=== PATIENT | male | born 1940 | race Caucasian/White ===

== ENCOUNTER 2016-11-11 10:13 | Emergency (ER) ==
[2016-11-11 10:19] VITALS: BP 139/54
--- NOTE | 2016-11-11 10:49 | PROVIDER DOCUMENTATION ---
HPI-Musculoskeletal Pain/Inj - GENERAL Chief Complaint: Neck Pain Stated Complaint: NECK PAIN Time Seen by Provider: 11/11/16 10:23 Source: patient - HX OF PRESENT ILLNESS-MUSKULOSKELTAL Nature of Presenting Problem: 76 y/o WM c/o R sided neck pain x 3 weeks, worse in last day. States he is having trouble lifting RUE past his shoulder. Denies any VAN, numbness/tingling , shoulder pain, back pain. Review of Systems - Adult - REVIEW OF SYSTEMS - ADULT Constitutional: reports: no symptoms reported. denies: chills, fever Eyes: reports: no symptoms reported. denies: blurred vision, double vision Ears, Nose, Mouth & Throat: reports: no symptoms reported. denies: ear pain, nose pain Cardiovascular: reports: no symptoms reported. denies: chest pain, palpitations Respiratory: reports: no symptoms reported. denies: dyspnea on exertion, shortness of breath Gastrointestinal: reports: no symptoms reported. denies: abdominal pain, nausea , vomiting Genitourinary: reports: no symptoms reported. denies: dysuria, frequency Musculoskeletal: reports: see HPI, neck pain. denies: back pain, joint pain, joint swelling Integumentary: reports: no symptoms reported. denies: nail changes, rash Neurological: reports: no symptoms reported. denies: headache/migraines, numbness, paresthesia Psychiatric: reports: no symptoms reported Endocrine: reports: no symptoms reported. denies: cold intolerance, heat intolerance Hematologic/Lymphatic: reports: no symptoms reported. denies: easy bruising, prolonged bleeding Allergic/Immunologic: reports: no symptoms reported All Other Systems: Reviewed and Negative Past History - Adult - PAST MEDICAL HISTORY-ADULT Review of Records: reports: Nursing Assessment Review, Medications Reviewed Cardiovascular: reports: CAD, HTN, AR Respiratory: reports: COPD Musculoskeletal: reports: other (bakers cyst) Endocrine/Immune: reports: Diabetes, thyroid disorder - PRIOR SURGERIES/PROCEDURES Surgical/Procedure History: reports: CABG, cardiac stent, orthopedic (extremity) - IMMUNIZATION STATUS Childhood Immunizations: See Nurse Assessment Flu Vaccine: See Nurse Assessment Physical Exam-Injury Related - Physical Exam-Injury Related Initial Vital Signs Reviewed: Yes General Appearance: alert, mild distress Eyes: pink conjunctivae Head, Ears, Nose, Mouth & Throat: normocephalic/atraumatic, moist mucous membranes Neck: supple, normal inspection, decresed ROM, limited range of motion, pain on movement, other (TTP lateral to Cspine on R). negative: full range of motion, carotid bruit, C-spine tenderness, vertebral point tenderness Respiratory: no respiratory distress Cardiovascular: normal peripheral pulses, regular rate, rhythm Peripheral Pulses: radial (R): 2+, radial (L): 2+ Back Exam: normal inspection, no vertebral tenderness, other (TTP R trapezius) Extremity: normal gait, normal capillary refill. negative: normal range of motion (LROM at R shoulder), abnormal NV exam, pulse deficit, swelling, tenderness (R shoulder) Integumentary: normal color, warm/dry Neurologic: negative: aphasia, motor weakness, sensory deficit Psych/Mental Status: AL, normal mood/affect, normal thought content, normal thought process, oriented x 3 Progress - XRAY 1 XRAY Study: C-Spine XRAY Interpretation: Cspine fusion noted; no displacement. No fx Departure - Departure Time of Disposition Order: 11:19 DIAGNOSIS: Fusion of spine of cervical region Cervical strain Qualifiers: Encounter type: initial encounter Qualified Code(s): S16.1XXA - Strain of muscle, fascia and tendon at neck level, initial encounter Disposition: HOME 01 Certified Medical Emergency: Emergent Condition: Stable Additional Instructions: Take medications as directed. Follow up with specialist if symptoms persist. Heat on area as needed, at least 3 times daily. No heavy activity or lifting for 14 days. ED Follow Up Instructions: You have been treated by a care provider in the Emergency Department. These instructions are being provided to you so you can have an understanding of how to care for yourself upon discharge. Upon discharge from the Emergency Department, you are responsible for making arrangements for follow-up care by a physician of your choice. Take all prescribed medications as directed. Return to the Emergency Department immediately for any new or worsening symptoms. You may call the Physician Referral phone number at [phone] to obtain a list of Physicians who are taking new patients. Prescriptions: Methocarbamol [Robaxin] 500 mg PO BID #30 tablet Referrals: Magdy Dodson MD [Primary Care Provider] - Marii Ba MD [STAFF PHYSICIAN] - Instructions: Spinal Fusion, [id number], Cervical Sprain, [id number] Attestation - Physician/ Mid-level Attestation Patient care was provided by Mid-level provider (ELECTORAL OFFICER/PA):: Yes Mid-level provider:: Bita Mckoy Mid-level documentation review:: The Mid-level provider documentation, treatment plan and medical decision making was reviewed by the physician who agrees with all treatment and medical decision making by the MLP.
[2016-11-11] MEDS ORDERED: ROBAXIN PO ONE (11:18)
[2016-11-11] MEDS ORDERED: DECADRON PO ONE (11:18)
--- NOTE | 2016-11-11 12:13 | Diag Imaging Result Document ---
PROCEDURE NAME: CERVICAL SPINE COMPLETE - 11/11/2016 PLAIN RADIOGRAPH OF THE CERVICAL SPINE 7 VIEWS: COMPARISON: 08/12/2013. FINDINGS: There is multilevel fusion at C4-5, C5-6, and C6-7. A ventral metallic plate and screws are identified. There are ventral marginal osteophytes at C2-3 and C3-4. There is loss of disk space height at C3-4. These findings are stable. There is no evidence of fracture, subluxation, or intrinsic osseous lesion otherwise. Surrounding soft tissues are essentially unremarkable. IMPRESSION: Stable extensive multilevel postsurgical change and degenerative disk disease at a couple other levels that appear stable as compared to the previous study.
== END 2016-11-11 11:41 | disposition home or self-care (01) ==
LOC: ED 10:13
DX: M54.2 Cervicalgia (principal); S16.1XXA Strain of muscle, fascia and tendon at neck level, initial encounter; Z98.1 Arthrodesis status; I25.10 Atherosclerotic heart disease of native coronary artery without angina pectoris; I10 Essential (primary) hypertension; I25.2 Old myocardial infarction; E11.9 Type 2 diabetes mellitus without complications; Z79.899 Other long term (current) drug therapy; J44.9 Chronic obstructive pulmonary disease, unspecified; E07.9 Disorder of thyroid, unspecified; Z95.1 Presence of aortocoronary bypass graft; Z95.5 Presence of coronary angioplasty implant and graft; Z79.02 Long term (current) use of antithrombotics/antiplatelets; Z79.82 Long term (current) use of aspirin
CPT/HCPCS: 72050; 99283; J8540